=== PATIENT | female | born 1950 | race Caucasian/White ===

== ENCOUNTER → 2016-07-16 | Outpatient (CLI) | payer OTHER ==
[2016-07-16 11:01] LABS: ALT/SGPT 26 U/L (12-78); AST/SGOT 14 U/L (15-37)
== END | disposition home or self-care (01) ==
LOC: C.LABBC 08:10
PROVIDERS: ATTEND Nurse Practitioner Adult Health
DX: E78.5 Hyperlipidemia, unspecified (principal)

== ENCOUNTER → 2016-07-25 | Outpatient (CLI) | payer OTHER ==
--- NOTE | 2016-07-25 14:25 | MAMMOGRAPHY REPORT ---
BILATERAL DIGITAL DIAGNOSTIC MAMMOGRAM TOMOSYNTHESIS WITH CAD AND TARGETED BILATERAL ULTRASOUND: 07/08 CLINICAL HISTORY: Palpable lump in the lateral right breast identified by the patient's physician. The patient reported this has felt the same for the past 44 years. Baseline screening mammogram. TECHNIQUE: Bilateral breast tomosynthesis in addition to standard 2D mammography was performed. Curr ent study was also evaluated with a Computer Aided Detection (CAD) system. COMPARISON: No prior exams were available for comparison. BREAST COMPOSITION: There are scattered areas of fibroglandular density in both breasts. FINDINGS: There are grouped benign-appearing round and punctate microcalcifications overlying the s kin of the upper outer anterior right breast. There is a morphologically normal intramammary lymph node in the upper outer posterior right breast. A few other subcentimeter circumscribed, benign-fuad earing masses are scattered throughout the right breast. There are a few benign-appearing microcalc ifications in the left breast, and multiple subcentimeter circumscribed masses. There is a 7 mm nod ular asymmetry in the superior middle one third of the left breast on the MLO tomosynthesis images ( slice 25) for which further evaluation with ultrasound was performed. No focal area of architectura l distortion or suspicious cluster of microcalcification is seen bilaterally. Targeted ultrasound was performed in the lateral right breast and in the superior and lateral left b reast. Scattered cysts are identified in the left 2:00 and 3:00 axes. The cyst in the 2:00 left br east, 4 cm from the nipple, measures 3.2 x 3.5 x 2.4 mm. An oval parallel cyst in the 3:00 left richard ast, 6 cm from the nipple measures 3.3 x 1.9 x 2.2 mm. A cyst versus focal duct ectasia in the 3:00 left breast, 5 cm from the nipple measures 5.8 mm. No suspicious solid mass is seen. Within the r ight lateral breast, no solid or cystic mass identified. IMPRESSION: ACR BI-RADS CATEGORY 2: BENIGN, TARGETED ULTRASOUND ACR BI-RADS CATEGORY 2: BENIGN 1. There is no suspicious mammographic or sonographic Normality in the right lateral breast in the a sabrina of palpable concern identified by the patient's physician. Therefore, clinical follow-up is rec ommended, as biopsy of a clinically suspicious mass should not be precluded by negative imaging. 2. There are multiple bilateral circumscribed sub-centimeter masses in the breasts. Some of the le ft breast masses correlate with anechoic benign simple cysts on ultrasound. An asymmetry in the sup erior left breast on the tomosynthesis images effaces and there is no suspicious sonographic correla te and therefore this is considered benign. Would recommend routine mammography in one year unless there is a new palpable concern. These results and recommendations were discussed with the patient and her daughter at the time of th e exam. Approximately 10% of breast cancers are not detected with mammography. A negative mammographic repor t should not delay biopsy if a clinically suggestive mass is present. Minal Smith M.D. ay/:07/25/2016 12:28:58 Hide Paster: Jina COBIAN)(Leni), [facility] letter sent: Normal 1/2 BI-RADS Code: ACR BI-RADS Category 2: Benign Ultrasound BI-RADS: ACR BI-RADS Category 2: Benign
== END | disposition home or self-care (01) ==
LOC: C.MAMM 10:19
PROVIDERS: ATTEND Nurse Practitioner Adult Health
DX: N63 Unspecified lump in breast (principal); N64.9 Disorder of breast, unspecified

== ENCOUNTER → 2016-07-31 | Outpatient (CLI) | payer OTHER | END | disposition home or self-care (01) | LOC: C.PATHSPEC 13:40 | PROVIDERS: ATTEND Obstetrics & Gynecology | DX: N84.1 Polyp of cervix uteri (principal) ==

== ENCOUNTER → 2017-08-23 | Outpatient (CLI) | payer OTHER ==
--- NOTE | 2017-08-23 15:00 | MAMMOGRAPHY REPORT ---
BILATERAL DIGITAL SCREENING MAMMOGRAM TOMOSYNTHESIS WITH CAD: 08/23/2017 CLINICAL HISTORY: Routine screening. Patient has no complaints. TECHNIQUE: Breast tomosynthesis in addition to standard 2D mammography was performed. Current study was also evaluated with a Computer Aided Detection (CAD) system. COMPARISON: Comparison is made to exams dated: 07/25/2016 ultrasound and 07/25/2016 mammogram - [facility]. BREAST COMPOSITION: There are scattered areas of fibroglandular density in both breasts. FINDINGS: No suspicious masses, calcifications, or areas of architectural distortion are noted in ei ther breast. There has been no significant interval change compared to prior exams. IMPRESSION: ACR BI-RADS CATEGORY 1: NEGATIVE There is no mammographic evidence of malignancy. A 1 year screening mammogram is recommended. The pa tient will receive written notification of the results. Approximately 10% of breast cancers are not detected with mammography. A negative mammographic report should not delay biopsy if a clinically suggestive mass is present. Italia Graf M.D. ah/:08/23/2017 14:48:45 [employer] Coach: Jocelyne GRULLON(R)(M), [facility] letter sent: Normal 1/2 BI-RADS Code: ACR BI-RADS Category 1: Negative
== END | disposition home or self-care (01) ==
LOC: C.MAMM 12:08
PROVIDERS: ATTEND Family Medicine
DX: Z12.31 Encounter for screening mammogram for malignant neoplasm of breast (principal)

== ENCOUNTER → 2017-08-26 | Outpatient (CLI) | payer OTHER ==
[2017-08-26 11:19] LABS: BLOOD UREA NITROGEN 16 mg/dl (7-18); CARBON DIOXIDE 27 mmol/L (21-32); CREATININE 0.82 mg/dl (0.60-1.20); GLUCOSE 94 mg/dl (70-99); POTASSIUM 3.9 mmol/L (3.5-5.1); SODIUM 141 mmol/L (136-145)
[2017-08-26 11:23] LABS: ALT/SGPT 20 U/L (12-78); CHOLESTEROL 250 mg/dl (0-200); LDL CHOLESTEROL CALCULATED 158 mg/dl
== END | disposition home or self-care (01) ==
LOC: C.LABBC 08:11
PROVIDERS: ATTEND Family Medicine
DX: B37.2 Candidiasis of skin and nail (principal)